=== PATIENT | male | born 2000 | race Caucasian/White ===

== ENCOUNTER 2019-01-07 20:42 | Emergency (ER) | payer MEDICAID ==
[~2019-01-07] VITALS: Ht 162.6 cm; Wt 63.5 kg
[2019-01-07 20:46] VITALS: BP 118/77
--- NOTE | 2019-01-07 20:48 | NUR ---
TO LOBBY A/W BED, CRISTY DYSON NOTED
--- NOTE | 2019-01-07 21:49 | NUR ---
PT AMBULATED TO BED 7
--- NOTE | 2019-01-07 21:50 | NUR ---
PT PRESENTS TO ED WITH C/O GROIN PAIN. PER PATIENT HE WAS REFFERED TO THE ED FROM AN EARLIER VISIT TO THE URGENT CARE TODAY. ABSCESS NOTED ON THE PUBIC AREA. PURULENT DRAINANGED NOTED. PER PATIENT, HE NOTICED THE ABSCESS 4 DAYS AGO. PT REPORTS OF 7/10 PAIN. DENIES ANY MEDICAL HX. MD AWARE OF PATIENT'S STATUS
[2019-01-07] MEDS ORDERED: LIDOCAINE 1% 500 MG/50 ML VIAL INJ SCH (22:05)
[2019-01-07] MEDS ORDERED: LIDOCAINE MPF 1% 5mL VIAL ONE (22:15)
[2019-01-07] MEDS ORDERED: cefTRIAXone 250 MG in LIDOCAINE MPF 1% - 5 mL VIAL 0.9 ML IM ONE (22:40)
[2019-01-07] MEDS ORDERED: AZITHROMYCIN 250 MG TAB PO ONE (22:40)
[2019-01-07 23:18] VITALS: BP 118/77
--- NOTE | 2019-01-07 23:18 | NUR ---
Patient discharged with v/s stable. Written and verbal after care instructions given and explained. Patient alert, oriented and verbalized understanding of instructions. Ambulatory with steady gait. All questions addressed prior to discharge. ID band removed. Patient advised to follow up with PMD. Rx of KEFLEX, IBUPROFEN, BACTRIM given. Patient educated on indication of medication including possible reaction and side effects. Opportunity to ask questions provided and answered.
== END 2019-01-07 23:18 | disposition home or self-care (01) ==
LOC: MED 20:42
DX: L02.211 Cutaneous abscess of abdominal wall (principal)
CPT/HCPCS: 10060; 96372; 99283; J0696; J2001